=== PATIENT | male | born 1960 | race Caucasian/White ===

== ENCOUNTER 2020-08-24 13:26 | Outpatient (CLI) | payer OTHER, SELFPAY | END 2020-08-24 13:27 | disposition home or self-care (01) | LOC: ANHCOVIDVC 13:26 | PROVIDERS: PCP Family Medicine | DX: Z23 Encounter for immunization (principal) | CPT/HCPCS: 0001A; 91300 ==

== ENCOUNTER 2022-06-13 19:42 | Emergency (ER) | payer OTHER, SELFPAY ==
[2022-06-13 19:51] VITALS: BP 135/88; PULSE 78; RESP 16; TEMP 36.4; O2SAT 98
--- NOTE | 2022-06-13 19:59 | ED.GENADULT ---
HPI - General Adult General Chief complaint: Upper Respiratory Infection Stated complaint: wheezing, shortness of breath Time Seen by Provider: 06/13/22 19:43 Source: patient, family and RN notes reviewed History of Present Illness HPI narrative: 61 yo M presents to urgent care with at side. Pt presents with SOB and non-stop coughing. Pt states he has been battling this for the last 10 days or so and was seen at his PCP's office on 06/02 where he was found to be wheezing. Pt was given a breathing Tx in the PCP's office with good improvement. Pt states his symptoms started to worsen yesterday. Pt has been using an albuterol inhaler with minimal improvement. Denies any fevers but reports chills at home yesterday. States he tested himself for Covid on Sunday which was negative. Denies any chest pain, N/V/D, or other complaints. Related Data Home Medications Medication Instructions Recorded Confirmed insulin lispro 100 unit/mL 1 sliding scale dose subcut 06/02/22 06/13/22 subcutaneous solution (Humalog USEASDIRECTD U-100 Insulin) Allergies Allergy/AdvReac Type Severity Reaction Status Date / Time No Known Drug Allergies Allergy Unknown [email or web address] Verified 06/13/22 19:53 Review of Systems Review of Systems: CONSTITUTIONAL: Denies fever or sweats. EYES: Denies visual changes, redness, or discharge. ENT: Denies otalgia and sore throat CARDIOVASCULAR: Denies chest pain, palpitations, or edema. RESPIRATORY: reports cough and dyspnea. GASTROINTESTINAL: Denies abdominal pain, nausea, vomiting, or diarrhea. GENITOURINARY: Denies dysuria or hematuria. SKIN: Denies rash or itching. MUSCULOSKELETAL: Denies back pain, joint pain, or myalgia. NEUROLOGIC: Denies headache, numbness, or weakness. [facility] Past Medical History Medical History Diabetes Family History Family History Father Depression Mother Lupus Sibling Asthma Depression Lupus Social History Social History Smoking status: Never smoker Tobacco type: smokeless tobacco Smokeless tobacco user: chewing tobacco Alcohol intake: current Substance use: unknown Lack of Transportation: YES Lack of Food: Never True Current Housing: I Have Housing Concerned About Future Housing: No Difficulty Paying Gas/Electric Bills: No Difficulty Paying for Meds: No Currently Unemployed: No Education: Trade/Vocational Certificate Difficulty w/ Childcare or Family Care: No Comments At the time of my signature, I reviewed and agree with the nursing past medical, surgical, social, and family history. There is no relevant family history pertinent to the patient complaint. Exam Narrative: GENERAL: This is a well-nourished, well-developed patient, in no apparent distress. HEAD: normocephalic, atraumatic. EYES: PERRL. Sclera clear/white. Vision is grossly intact. EARS: External ears normal, auditory canals clear and without drainage, TMs normal without perforation. Hearing grossly intact. NOSE: External nose normal with no obvious nasal discharge, nares without redness, no rhinorrhea. THROAT: Mucous membranes moist, posterior pharynx clear. NECK: Neck supple, non-tender without lymphadenopathy, masses or thyromegaly. CARDIOVASCULAR: Regular rate and rhythm without murmurs, gallops, or rubs. RESPIRATORY: Wheezing and rhonchi throughout on auscultation. Pt coughing frequently. No distress. Talking in full sentences. GASTROINTESTINAL: Abdomen soft, non-tender, nondistended. Bowel sounds are active. No hepato-splenomegaly, or palpable masses. No guarding. SKIN: warm, intact with no suspicious lesions or rash, good texture and turgor. NEURO: awake, alert, and oriented to person, place and time. There were no obvious focal neurologic abnormalities. Course Course Level of Care:
[2022-06-13] MEDS: IPRATROPIUM BR 0.02% INH SOLN 0.5 MG/2.5 ML VIAL INHALATION (20:10)
[2022-06-13] MEDS: ALBUTEROL SULFATE NEB 2.5 MG/3 ML INH INHALATION (20:10)
[2022-06-13] MEDS: predniSONE 20 MG TABLET 60 MG PO (20:10)
== END 2022-06-13 20:29 | disposition home or self-care (01) ==
PROVIDERS: Emergency Provider Nurse Practitioner Family; PCP Physician Assistant
DX: J40 Bronchitis, not specified as acute or chronic (principal); E11.9 Type 2 diabetes mellitus without complications; Z79.4 Long term (current) use of insulin
CPT/HCPCS: 94640; 99213; G0463; J7512